=== PATIENT | male | born 1950 | race Caucasian/White ===

== ENCOUNTER 2016-10-23 09:59 | Inpatient (IN) | payer OTHER ==
[~2016-10-23] VITALS: Ht 175.3 cm; Wt 86.0 kg
[~2016-10-23 09:59] MED LIST: ACIDOPHILUS1 EAC4 PO; ADVAIR 500/501 DISK IH; BENEFIBER152 GM PO; CENTRUM COMPLE1 EACH PO; DELTASONE20 M1 PO; DUONEB 2.5-0.5 M3 ML AEROSOL; ITRACONAZOLE100 MG PO; LEVAQUIN750 MG PO; NEXIUM40 MG PO; NORVASC5 MG PO; POTASSIUM-9999 MG PO; PROAIR HFA8.5 GM IH; SINGULAIR10 MG PO; SUPER CALCIUM600 MG PO; VITAMIN C500 M1 PO; VITAMIN D31000 UNI2 PO; XOLAIR150 MG SC
[2016-10-23 11:04] LABS: HEMATOCRIT 46.8 % (38.0-50.0); MCH 30.1 PG (29.0-34.0); MCHC 34.2 G/DL (30.0-36.0); MCV 88.1 FL (86-99); MEAN PLAT.VOLUME 9.8 uM^3 (9.0-12.4); PLATELET COUNT 171 K/uL (156-360); RBC DIS.WIDTH-CV 14.9 % (11.8-14.6); RBC DIS.WIDTH-SD 48.4 % (39-53); RED BLOOD COUNT 5.31 M/uL (4.00-5.50); WHITE BLOOD COUNT 19.8 K/uL (4.1-10.2)
[2016-10-23 11:13] LABS: CHLORIDE 100 mEq/L (99-109); POTASSIUM 3.5 mEq/L (3.7-5.4); SODIUM 139 mEq/L (136-147)
[2016-10-23 11:15] LABS: GLUCOSE 122 mg/dL (70-99)
[2016-10-23 11:16] LABS: ANION GAP 14 MEQ/L (2-14)
[2016-10-23 11:17] LABS: TOTAL BILIRUBIN 1.3 mg/dL (0.0-1.0)
[2016-10-23 11:19] LABS: ALKALINE PHOSPHATASE 60 IU/L (3-129); GFR ESTIMATE (CALCULATED) > 59 mL/min/
[2016-10-23 11:20] LABS: UREA NITROGEN (BUN) 21 mg/dL (9-23)
[2016-10-23 11:41] LABS: LIPASE 31 U/L (1.0-51.0)
[2016-10-23 12:15] LABS: ADD MIUA? YES; BILIRUBIN NEGATIVE; BLOOD NEGATIVE; COLOR YELLOW ((YELLOW)); GLUCOSE (STRIP) NEGATIVE; KETONES NEGATIVE; LEUKOCYTES TRACE; NITRITE NEGATIVE; PH, URINE 7.5 (5-8); PROTEIN (STRIP) NEGATIVE; SPECIFIC GRAVITY 1.017 (1.000-1.030); UROBILINOGEN 0.2 MG/DL (0.2-1.0)
[2016-10-23 13:04] LABS: AMORPHOUS PHOSPHATE CRYSTALS 2+; BACTERIA NONE SEEN; CASTS NONE SEEN /LPF; CRYSTALS PRESENT; EPITHELIAL CELLS NONE SEEN; MUCUS NONE SEEN; RED BLOOD CELLS NONE SEEN /HPF (0-5); UCUL ADDED? NO; WHITE BLOOD CELLS RARE /HPF (0-5)
[2016-10-23] MEDS ORDERED: PREDNISONE20 MG PO (13:44)
[2016-10-23] MEDS ORDERED: [UNRECOGNIZED DRUG - REMARK] TP (13:46)
[2016-10-23 19:20] LABS: HEMATOCRIT 45.9 % (38.0-50.0); MCH 29.7 PG (29.0-34.0); MCHC 33.1 G/DL (30.0-36.0); MCV 89.6 FL (86-99); MEAN PLAT.VOLUME 10.1 uM^3 (9.0-12.4); PLATELET COUNT 154 K/uL (156-360); RBC DIS.WIDTH-CV 14.7 % (11.8-14.6); RBC DIS.WIDTH-SD 47.8 % (39-53); RED BLOOD COUNT 5.12 M/uL (4.00-5.50); WHITE BLOOD COUNT 20.4 K/uL (4.1-10.2)
[2016-10-23 19:42] LABS: EOSINOPHIL (%) 0 % (0-5); IMMATURE GRANULOCYTE (%) 0.6 % (0.0-0.7); IMMATURE GRANULOCYTE COUNT 0.1 K/uL; LYMPHOCYTE COUNT 0.6 K/uL (1.0-2.8); MONOCYTE COUNT 0.2 K/uL (0-0.8); NEUTROPHIL (%) 95.4 % (45-76); NEUTROPHIL COUNT 19.5 K/uL (1.8-6.4)
[2016-10-23 19:43] LABS: ANION GAP 10 MEQ/L (2-14); CHLORIDE 100 MEQ/L (99-109); GFR ESTIMATE (CALCULATED) > 59 mL/min/; POTASSIUM 3.9 MEQ/L (3.7-5.4); SAMPLE HEMOLYSIS CHECK 0; SAMPLE ICTERIC CHECK 0; SAMPLE LIPEMIA CHECK 0; SODIUM 136 MEQ/L (136-147); UREA NITROGEN (BUN) 14 mg/dL (9-23)
[2016-10-23 19:46] LABS: GLUCOSE 184 mg/dL (70-99)
[2016-10-23 20:26] VITALS: BP 139/85
[2016-10-23 22:13] LABS: POINT-OF-CARE METER ID UU14149397
[2016-10-23 23:49] VITALS: BP 141/83
[2016-10-24 03:52] VITALS: BP 122/74
[2016-10-24 04:53] LABS: HEMATOCRIT 44.1 % (38.0-50.0); MCH 29.9 PG (29.0-34.0); MCHC 33.8 G/DL (30.0-36.0); MCV 88.4 FL (86-99); MEAN PLAT.VOLUME 10.3 uM^3 (9.0-12.4); PLATELET COUNT 180 K/uL (156-360); RBC DIS.WIDTH-CV 14.9 % (11.8-14.6); RBC DIS.WIDTH-SD 47.5 % (39-53); RED BLOOD COUNT 4.99 M/uL (4.00-5.50); WHITE BLOOD COUNT 23.8 K/uL (4.1-10.2)
[2016-10-24 04:57] LABS: CHLORIDE 102 mEq/L (99-109); POTASSIUM 3.9 mEq/L (3.7-5.4); SODIUM 136 mEq/L (136-147)
[2016-10-24 04:59] LABS: GLUCOSE 159 mg/dL (70-99)
[2016-10-24 05:00] LABS: ANION GAP 11 MEQ/L (2-14)
[2016-10-24 05:03] LABS: GFR ESTIMATE (CALCULATED) > 59 mL/min/
[2016-10-24 05:04] LABS: UREA NITROGEN (BUN) 18 mg/dL (9-23)
[2016-10-24 06:14] LABS: EOSINOPHIL (%) 0 % (0-5); HEMATOLOGY COMMENT 1 REV; IMMATURE GRANULOCYTE (%) 0.5 % (0.0-0.7); IMMATURE GRANULOCYTE COUNT 1.1 K/uL; LYMPHOCYTE COUNT 0.8 K/uL (1.0-2.8); MONOCYTE (%) 4.1 % (3-12); NEUTROPHIL COUNT 21.9 K/uL (1.8-6.4); USER ID SLU
[2016-10-24 08:39] VITALS: BP 135/77
[2016-10-24 12:09] LABS: POINT-OF-CARE METER ID UU14149397
[2016-10-24 16:25] LABS: POINT-OF-CARE METER ID UU14149397
[2016-10-24 17:36] VITALS: BP 144/83
[2016-10-24 19:59] VITALS: BP 147/83
[2016-10-24 22:16] LABS: POINT-OF-CARE METER ID UU14149397
[2016-10-24 23:44] VITALS: BP 134/75
[2016-10-25 03:39] VITALS: BP 152/81
[2016-10-25 08:22] VITALS: BP 133/79
[2016-10-25 10:55] LABS: ANION GAP 10 MEQ/L (2-14); CHLORIDE 105 MEQ/L (99-109); GFR ESTIMATE (CALCULATED) > 59 mL/min/; GLUCOSE 104 mg/dL (70-99); POTASSIUM 3.8 MEQ/L (3.7-5.4); SAMPLE HEMOLYSIS CHECK 0; SAMPLE ICTERIC CHECK 0; SAMPLE LIPEMIA CHECK 0; SODIUM 141 MEQ/L (136-147); UREA NITROGEN (BUN) 20 mg/dL (9-23)
[2016-10-25 13:14] LABS: HEMATOCRIT 37.8 % (38.0-50.0); MCH 30.2 PG (29.0-34.0); MCHC 32.8 G/DL (30.0-36.0); MCV 92.2 FL (86-99); MEAN PLAT.VOLUME 10.9 uM^3 (9.0-12.4); PLATELET COUNT 140 K/uL (156-360); RBC DIS.WIDTH-CV 15.4 % (11.8-14.6); RBC DIS.WIDTH-SD 51.9 % (39-53); WHITE BLOOD COUNT 14.3 K/uL (4.1-10.2)
[2016-10-25 16:53] VITALS: BP 140/82
[2016-10-26] VITALS: BP 143/79
[2016-10-26 04:21] VITALS: BP 151/84
[2016-10-26 05:14] LABS: CHLORIDE 109 mEq/L (99-109); POTASSIUM 3.9 mEq/L (3.7-5.4); SODIUM 140 mEq/L (136-147)
[2016-10-26 05:15] LABS: GLUCOSE 113 mg/dL (70-99)
[2016-10-26 05:17] LABS: ANION GAP 8 MEQ/L (2-14)
[2016-10-26 05:19] LABS: GFR ESTIMATE (CALCULATED) > 59 mL/min/
[2016-10-26 05:20] LABS: UREA NITROGEN (BUN) 21 mg/dL (9-23)
[2016-10-26 08:00] VITALS: BP 139/87
[2016-10-26 09:04] LABS: HEMATOCRIT 35.6 % (38.0-50.0); MCHC 33.1 G/DL (30.0-36.0); MCV 90.6 FL (86-99); MEAN PLAT.VOLUME 10.6 uM^3 (9.0-12.4); PLATELET COUNT 130 K/uL (156-360); RBC DIS.WIDTH-CV 15.1 % (11.8-14.6); RBC DIS.WIDTH-SD 50.6 % (39-53); RED BLOOD COUNT 3.93 M/uL (4.00-5.50); WHITE BLOOD COUNT 11.9 K/uL (4.1-10.2)
[2016-10-26 12:00] VITALS: BP 145/84
[2016-10-26 20:00] VITALS: BP 140/80
[2016-10-26 23:55] VITALS: BP 150/84
[2016-10-27] VITALS (7 sets, daily range): BP systolic 14–161; BP diastolic 71–85
[2016-10-27 07:11] LABS: HEMATOCRIT 38.2 % (38.0-50.0); MCH 31.7 PG (29.0-34.0); MCHC 35.3 G/DL (30.0-36.0); MCV 89.7 FL (86-99); RBC DIS.WIDTH-CV 15.1 % (11.8-14.6); RBC DIS.WIDTH-SD 49.1 % (39-53); RED BLOOD COUNT 4.26 M/uL (4.00-5.50); WHITE BLOOD COUNT 12.4 K/uL (4.1-10.2)
[2016-10-27 07:18] LABS: PLATELET COUNT 178 K/uL (156-360)
[2016-10-27 07:33] LABS: ANION GAP 14 MEQ/L (2-14); CHLORIDE 100 MEQ/L (99-109); GFR ESTIMATE (CALCULATED) > 59 mL/min/; GLUCOSE 117 mg/dL (70-99); POTASSIUM 3.6 MEQ/L (3.7-5.4); SAMPLE HEMOLYSIS CHECK 0; SAMPLE ICTERIC CHECK 0; SAMPLE LIPEMIA CHECK 0; SODIUM 137 MEQ/L (136-147); UREA NITROGEN (BUN) 15 mg/dL (9-23)
[2016-10-27 12:06] LABS: BASE EXCESS 2.8 mEq/L (-3 to +3); BICARBONATE 25.7 mEq/L (22-26); CARBOXY HGB 2.2 % (0-5); COMMENTS - BLOOD GASES A+C+; DEVICE NC; METHEMOGLOBIN 1.6 % (0-1.5); O2 FLOW 4 L/MIN; PCO2 33 mm Hg (35-45); PO2 81 mm Hg (80-100); SITE RR; TOTAL RESP RATE 14 resp/min
[2016-10-27 12:14] LABS: TROP-I INTERPRETATION NEGATIVE; TROPONIN-I 0.02 ng/mL (0.0-0.30)
[2016-10-27 22:09] LABS: POINT-OF-CARE METER ID UU13113717
[2016-10-28 03:58] VITALS: BP 149/79
[2016-10-28 05:10] LABS: POTASSIUM 3.6 mEq/L (3.7-5.4); SODIUM 133 mEq/L (136-147)
[2016-10-28 05:12] LABS: GLUCOSE 144 mg/dL (70-99)
[2016-10-28 05:13] LABS: ANION GAP 10 MEQ/L (2-14)
[2016-10-28 05:16] LABS: GFR ESTIMATE (CALCULATED) > 59 mL/min/; UREA NITROGEN (BUN) 15 mg/dL (9-23)
[2016-10-28 05:18] LABS: CHLORIDE 98 mEq/L (99-109)
[2016-10-28 06:32] LABS: POINT-OF-CARE METER ID UU13113717
[2016-10-28 08:30] VITALS: BP 138/75
[2016-10-28 11:30] VITALS: BP 138/75
[2016-10-28 16:30] VITALS: BP 167/88
[2016-10-28 20:00] VITALS: BP 137/88
[2016-10-29] VITALS: BP 135/63
[2016-10-29 04:01] VITALS: BP 163/77
[2016-10-29 06:40] LABS: EOSINOPHIL (%) 0 % (0-5); HEMATOCRIT 35.5 % (38.0-50.0); IMMATURE GRANULOCYTE (%) 0.9 % (0.0-0.7); IMMATURE GRANULOCYTE COUNT 0.2 K/uL; LYMPHOCYTE COUNT 0.4 K/uL (1.0-2.8); MCH 29.1 PG (29.0-34.0); MCHC 33.2 G/DL (30.0-36.0); MCV 87.7 FL (86-99); MEAN PLAT.VOLUME 10.6 uM^3 (9.0-12.4); MONOCYTE (%) 5.3 % (3-12); MONOCYTE COUNT 1.1 K/uL (0-0.8); NEUTROPHIL COUNT 19.4 K/uL (1.8-6.4); PLATELET COUNT 165 K/uL (156-360); RBC DIS.WIDTH-CV 14.9 % (11.8-14.6); RBC DIS.WIDTH-SD 47.8 % (39-53); RED BLOOD COUNT 4.05 M/uL (4.00-5.50)
[2016-10-29 06:42] LABS: ANION GAP 10 MEQ/L (2-14); CHLORIDE 100 MEQ/L (99-109); GFR ESTIMATE (CALCULATED) > 59 mL/min/; GLUCOSE 128 mg/dL (70-99); MAGNESIUM 1.9 mg/dl (1.3-2.7); SAMPLE HEMOLYSIS CHECK 0; SAMPLE ICTERIC CHECK 0; SAMPLE LIPEMIA CHECK 0; SODIUM 135 MEQ/L (136-147); UREA NITROGEN (BUN) 16 mg/dL (9-23)
[2016-10-29 06:45] LABS: WHITE BLOOD COUNT 21.2 K/uL (4.1-10.2)
[2016-10-29 07:12] LABS: POINT-OF-CARE METER ID UU13113717
[2016-10-29 08:52] VITALS: BP 135/90
[2016-10-29 12:37] LABS: POINT-OF-CARE METER ID UU13113717
[2016-10-29 13:40] LABS: ADD MIUA? YES; BILIRUBIN NEGATIVE; BLOOD SMALL; COLOR YELLOW ((YELLOW)); GLUCOSE (STRIP) 100; KETONES 15; LEUKOCYTES NEGATIVE; NITRITE NEGATIVE; PH, URINE 6.5 (5-8); PROTEIN (STRIP) 30; SPECIFIC GRAVITY 1.016 (1.000-1.030)
[2016-10-29 13:46] LABS: BACTERIA NONE SEEN; CASTS NONE SEEN /LPF; CRYSTALS NONE SEEN; EPITHELIAL CELLS RARE; MUCUS NONE SEEN; PATHOLOGICAL CAST NONE SEEN; RED BLOOD CELLS 15-20 /HPF (0-5); SMALL ROUND CELL NONE SEEN; UCUL ADDED? NO; WHITE BLOOD CELLS 0-5 /HPF (0-5); YEAST-LIKE CELL NONE SEEN
[2016-10-29 15:45] VITALS: BP 131/78
[2016-10-29 17:30] LABS: POINT-OF-CARE METER ID UU13113717
[2016-10-29 20:20] VITALS: BP 128/80
[2016-10-29 21:49] LABS: POINT-OF-CARE METER ID UU14149397
[2016-10-30 00:51] VITALS: BP 156/83
[2016-10-30 04:00] VITALS: BP 147/73
[2016-10-30 06:27] LABS: HEMATOCRIT 34.4 % (38.0-50.0); MCH 29.9 PG (29.0-34.0); MEAN PLAT.VOLUME 11.8 uM^3 (9.0-12.4); PLATELET COUNT 202 K/uL (156-360); RBC DIS.WIDTH-CV 15.3 % (11.8-14.6); RBC DIS.WIDTH-SD 49.3 % (39-53); RED BLOOD COUNT 3.91 M/uL (4.00-5.50)
[2016-10-30 06:48] LABS: ANION GAP 12 MEQ/L (2-14); CHLORIDE 99 MEQ/L (99-109); GFR ESTIMATE (CALCULATED) > 59 mL/min/; GLUCOSE 111 mg/dL (70-99); POTASSIUM 4.3 MEQ/L (3.7-5.4); SAMPLE HEMOLYSIS CHECK 0; SAMPLE ICTERIC CHECK 0; SAMPLE LIPEMIA CHECK 0; SODIUM 134 MEQ/L (136-147); UREA NITROGEN (BUN) 16 mg/dL (9-23)
[2016-10-30 07:02] LABS: POINT-OF-CARE METER ID UU13113717
[2016-10-30 08:16] VITALS: BP 180/84
[2016-10-30] MEDS ORDERED: HYDROMORPHONE HC2 MG PO (10:27)
[2016-10-30] MEDS ORDERED: ZOFRAN ODT4 MG PO (10:27)
[2016-10-30] MEDS ORDERED: FLOMAX0.4 MG PO (10:35)
== END 2016-10-30 14:40 | disposition home health service (06) | DRG 331 ==
LOC: EME 09:59 → SDC 14:24 → EME 14:24 → 3EAST 17:24 → 2SOUTH 17:24 → 3EAST 19:45
PROVIDERS: Surgery
PROC: 0DTF0ZZ Resection of Right Large Intestine, Open Approach (ICD-10-PCS; principal; 2016-10-23)
DX: K56.2 Volvulus (principal); K56.7 Ileus, unspecified; R31.0 Gross hematuria; R00.0 Tachycardia, unspecified; I10 Essential (primary) hypertension; N40.1 Benign prostatic hyperplasia with lower urinary tract symptoms; R39.11 Hesitancy of micturition; R39.12 Poor urinary stream; R35.0 Frequency of micturition; N21.0 Calculus in bladder; N20.0 Calculus of kidney; J45.909 Unspecified asthma, uncomplicated; K21.9 Gastro-esophageal reflux disease without esophagitis; Z88.5 Allergy status to narcotic agent
CPT/HCPCS: 36600; 71010; 71020; 74020; 74177; 80048; 80048 91; 80053; 81003; 82803; 82948; 83690; 83735; 84100; 84484; 85025; 85027; 86850; 86900; 86901; 88307; 93005; 94640; 94640 76; 94760; 94799; 97530 GO; 97530 GP; 99202; 99281; 99285; J0690; J1100; J1170; J1650; J1720; J2250; J2405; J2710; J2920; J3010; J3480; J7030; J7120; J7512